=== PATIENT | male | born 1955 | race Caucasian/White ===

== ENCOUNTER 2017-01-30 10:43 | Inpatient (IN) | payer OTHER ==
[~2017-01-30] VITALS: Ht 180.3 cm; Wt 122.9 kg
[~2017-01-30 10:43] MED LIST: ALLOPURINOL300 MG PO; BACTRIM DS1 TAB PO; CARISOPRODOL350 MG PO; CLONAZEPAM1 MG PO; COZAAR100 MG PO; DULOXETINE30 MG PO; ECO81 PO; FLO4 PO; HYDROCHLOROTHIA25 MG PO; HYDROCODONE/ACE1 TA2 PO; KEFLEX250 MG PO; KLOR-CON 1010 MEQ PO; MELOXICAM15 M1 PO; NOR10T PO; PRI20 PO; VIAGRA50 MG PO; ZOC20 PO
[2017-01-30 11:26] LABS: BASOPHIL % 0.2 % (0-2); PLATELET COUNT 159 x10^3mcL (130-400); RED CELL DISTRIBUTION WIDTH 13.8 % (11.5-14.5)
[2017-01-30 11:36] LABS: CALCIUM 9.3 mg/dL (8.5-10.1); CARBON DIOXIDE 35.1 mmol/L (21-32); CHLORIDE SERUM 100 mmol/L (98-107); GFR1 > 60 mL/min; GLUCOSE SERUM 122 mg/dL (74-106); POTASSIUM SERUM 3.6 mmol/L (3.5-5.1); SODIUM SERUM 139 mmol/L (136-145)
[2017-01-30 11:40] LABS: ALBUMIN 4.1 g/dL (3.4-5.0); ALKALINE PHOSPHATASE 63 U/L (46-116); ALT/SGPT 40 U/L (16-63); AST/SGOT 28 U/L (15-37); BILIRUBIN TOTAL 0.4 mg/dL (0.20-1.00); TOTAL PROTEIN, SERUM 7.3 g/dL (6.4-8.2)
[2017-01-30] MEDS ORDERED: LORAZEPAM1 MG PO (12:27)
[2017-01-30] MEDS ORDERED: PROPRANOLOL HCL10 MG PO (12:28)
[2017-01-30] MEDS ORDERED: PROPRANOLOL HYD60 MG PO (12:29)
[2017-01-30] MEDS ORDERED: METHADONE HCL10 MG PO (12:30)
[2017-01-30 12:31] LABS: AMPHETAMINE QUAL UR NONE DETECTED (NEG <=1000)
[2017-01-30 14:18] VITALS: BP 155/86
[2017-01-30 14:22] VITALS: Ht 180.3 cm; Wt 122.9 kg
[2017-01-30 17:12] LABS: microscopic required? NO
[2017-01-30 17:18] LABS: CHOLESTEROL/HDL RATIO 4.4; MAGNESIUM 1.9 mg/dL (1.8-2.4); PHOSPHOROUS 3.3 mg/dL (2.5-4.9)
[2017-01-30 17:18] LABS: UA SPECIFIC GRAVITY 1.015 (1.005-1.035); urine erythrocyte NEGATIVE (NEGATIVE)
[2017-01-30 17:43] LABS: FREE T4 1.12 ng/dL (0.76-1.46); FREE THYROXINE INDEX 3.7 ug/dL (1.4-4.5); T4(THYROXINE) 9.4 ug/dL (4.7-13.3)
[2017-01-30 18:23] LABS: T3 TOTAL 1.04 ng/mL
[2017-01-30 21:03] VITALS: BP 116/62
[2017-01-31 05:31] VITALS: BP 157/71
[2017-01-31 06:21] LABS: CALCIUM 8.8 mg/dL (8.5-10.1); CARBON DIOXIDE 33.4 mmol/L (21-32); CHLORIDE SERUM 102 mmol/L (98-107); GFR1 > 60 mL/min; GLUCOSE SERUM 137 mg/dL (74-106); POTASSIUM SERUM 3.8 mmol/L (3.5-5.1); SODIUM SERUM 141 mmol/L (136-145)
[2017-01-31 06:54] LABS: PLATELET COUNT 145 x10^3mcL (130-400); RED CELL DISTRIBUTION WIDTH 14.1 % (11.5-14.5)
[2017-01-31 07:06] LABS: BASOPHIL % 0 % (0-2)
[2017-01-31 08:15] VITALS: BP 153/72
[2017-01-31 13:20] VITALS: BP 143/70
[2017-01-31 17:23] VITALS: BP 146/69
[2017-01-31 21:38] VITALS: BP 148/67
[2017-02-01 05:49] VITALS: BP 168/83
[2017-02-01] MEDS ORDERED: PANTOPRAZOLE SO40 M1 PO (13:43)
[2017-02-01] MEDS ORDERED: PROPRANOLOL HCL10 MG PO ×2 (13:46→15:48)
[2017-02-01 15:00] VITALS: BP 154/71
[2017-02-01 15:27] VITALS: BP 154/71
== END 2017-02-01 16:09 | disposition home or self-care (01) | DRG 392 ==
LOC: ED 10:43 → DU 12:30
PROVIDERS: Emergency Medicine; ADMIT Family Medicine
DX: K21.9 Gastro-esophageal reflux disease without esophagitis (principal); R73.03 Prediabetes; I16.0 Hypertensive urgency; F41.9 Anxiety disorder, unspecified; M54.5 Low back pain; G89.29 Other chronic pain; E78.5 Hyperlipidemia, unspecified; E66.9 Obesity, unspecified; Z68.37 Body mass index [BMI] 37.0-37.9, adult; Z79.891 Long term (current) use of opiate analgesic; Z98.1 Arthrodesis status
CPT/HCPCS: 36600; 83880; 84439; J7030; Q0092; Q9967